=== PATIENT | male | born 1995 | race Caucasian/White ===

== ENCOUNTER 2020-03-08 20:58 | Emergency (ER) | payer MEDICAID, OTHER ==
[~2020-03-08] VITALS: Ht 170.2 cm; Wt 122.7 kg
[~2020-03-08 20:58] MED LIST: ALBU8.5H8 IH
[2020-03-09] MEDS ORDERED: SULFAMETHOX/TRIMETH DS 800-160 MG/TABLET PO ONE ×2 (00:15)
[2020-03-09] MEDS ORDERED: CEPHALEXIN MONOHYDRATE 500 MG CAPSULE PO ONE ×2 (00:15)
[2020-03-09] MEDS ORDERED: HYDROCODONE/ACETAMINOPHEN 5-325 MG TABLET PO ONE (00:15)
[2020-03-09] MEDS ORDERED: LIDOCAINE 1% 10 ML VIAL INJ ONE (00:15)
[2020-03-09] MEDS ORDERED: LIDOCAINE 1% 10 ML VIAL ONE (00:33)
[2020-03-09 02:10] VITALS: BP 138/87
== END 2020-03-09 03:31 | disposition home or self-care (01) ==
LOC: EMS 21:00
DX: L03.031 Cellulitis of right toe (principal)
CPT/HCPCS: 10060; 99283; J3490